=== PATIENT | male | born 1995 | race Caucasian/White ===

== ENCOUNTER → 2017-12-24 | Outpatient (CLI) | payer BC | END | disposition home or self-care (01) | LOC: ECHO 09:45 | DX: I11.9 Hypertensive heart disease without heart failure (principal); R53.83 Other fatigue | CPT/HCPCS: 93306 ==

== ENCOUNTER → 2018-03-11 | Outpatient (CLI) | payer BC ==
[2018-03-11] MEDS: ZOLPIDEM 5 MG TABLET. PO (22:21)
== END | disposition home or self-care (01) ==
LOC: SLPLAB 18:40
DX: G47.33 Obstructive sleep apnea (adult) (pediatric) (principal)
CPT/HCPCS: 95810

== ENCOUNTER → 2018-12-09 | Outpatient (CLI) | payer BC ==
--- NOTE | 2018-12-09 14:37 | KCIC ---
EXAM: Abdomen sonogram. HISTORY: Pain. TECHNIQUE: Sonographic imaging of the abdomen was performed. COMPARISON: None. FINDINGS: The exam is limited due to patient body habitus. There is hepatomegaly and hepatic steatosis. No focal hepatic lesion is seen. The common bile duct is obscured. The pancreas is unremarkable. The spleen is enlarged, measuring 15.6 cm. The kidneys are unremarkable. The aorta, pancreas and inferior vena cava are obscured. IMPRESSION: 1. Hepatomegaly and hepatic steatosis. 2. Splenomegaly. 3. Limited evaluation of the midline structures and common bile duct due to body habitus. Electronically signed by: Josi Randolph MD (12/09/2018 2:34 PM) [id number]
== END | disposition home or self-care (01) ==
LOC: KCIC US 13:09
PROVIDERS: ATTEND Family Medicine
DX: K76.0 Fatty (change of) liver, not elsewhere classified (principal); R16.2 Hepatomegaly with splenomegaly, not elsewhere classified
CPT/HCPCS: 76700

== ENCOUNTER 2019-12-10 12:04 | Emergency (ER) | payer OTHER ==
[~2019-12-10] VITALS: Ht 188 cm; Wt 168.0 kg
[2019-12-10 12:25] VITALS: BP 169/103
[2019-12-10] MEDS ORDERED: ORPH100T PO (12:42)
[2019-12-10] MEDS ORDERED: IBUP-1007 PO (12:42)
--- NOTE | 2019-12-10 12:42 | PHYS DOC ---
Adult General Chief Complaint Chief Complaint: ANKLE PROBLEM HPI HPI Patient is a 23 year old male who presents with proximal at [facility] and is on his feet a lot walking and pushing carts and stocking. He's been doing this after last 3 months. Patient states he awoke yesterday and began having left arch of his foot pain. Patient states he can walk and bear weight on it but it is painful. Patient states he took Aleve yesterday but with little use of pain. Patient rates his pain 7 out of 10. Review of Systems Review of Systems Musculoskeletal: Left arch of foot pain. Denies back pain or joint pain [] All other systems were reviewed and found to be within normal limits, except as documented in this note. Allergies Allergies Allergies Coded Allergies Type Severity Reaction Last Updated Verified Penicillins Allergy Intermediate Rash 03/11/18 Yes Physical Exam Physical Exam Constitutional: Well developed, well nourished, no acute distress, non-toxic appearance. [] HENT: Normocephalic, atraumatic, bilateral external ears normal, oropharynx moist, no oral exudates, nose normal. [] Eyes: PERRLA, EOMI, conjunctiva normal, no discharge. [] Neck: Normal range of motion, no tenderness, supple, no stridor. [] Cardiovascular:Heart rate regular rhythm, no murmur [] Lungs & Thorax: Bilateral breath sounds clear to auscultation [] Abdomen: Bowel sounds normal, soft, no tenderness, no masses, no pulsatile masses. [] Skin: Warm, dry, no erythema, no rash. [] Back: No tenderness, no CVA tenderness. [] Extremities: Left arch of foot tenderness, no cyanosis, no clubbing, ROM intact, no edema. [] Neurologic: Alert and oriented X 3, normal motor function, normal sensory function, no focal deficits noted. [] Psychologic: Affect normal, judgement normal, mood normal. [] Current Patient Data Vital Signs Vital Signs Date Time Temp Pulse Resp B/P (MAP) Pulse Ox O2 Delivery O2 Flow Rate FiO2 12/10/19 12:25 98.1 107 20 169/103 (125) 96 Room Air 98.1 EKG EKG [] Radiology/Procedures Radiology/Procedures [] Impressions: [facility] [address] [place] [address] IMAGING REPORT Signed PATIENT: REINA RAMÍREZ ACCOUNT: [id number] : 1995 LOCATION: ER AGE: 23 SEX: M EXAM STATUS: REG ER ORD. PHYSICIAN: BABS NASCIMENTO APRN REASON: pain to arch of foot,pt denies trauma or injury PROCEDURE: FOOT LEFT 3V Left foot 3 views. HISTORY: Pain to arch of foot 3 views were taken of the left foot. There is not evidence of an acute fracture or osseous abnormality. IMPRESSION: 1. Negative left foot. Electronically signed by: Sin Shearer MD (12/10/2019 1:07 PM) [id number] DICTATED and SIGNED BY: SIN SHEARER MD DATE: 12/10/19 1308 Course & Med Decision Making Course & Med Decision Making Pertinent Labs and Imaging studies reviewed. (See chart for details) Alert and oriented. Patient can walk and bear weight on the left extremity lower extremity but there is sharp and aching pain. He is limping. Skin pink warm and dry. No swelling. There is tenderness to the arch of his foot. No bruising or deformity or swelling or redness. Patient does have dry skin to the bottom of the foot. Pedal pulses strong and present. Cap refill less than 3 seconds. Can wiggle toes. Denies any numbness or tingling. Denies any ankle pain. Denies any injury. Patient's shoes look to be very worn. This is likely a overuse type injury to the arch of his foot or a strain. Patient be given a prescription for ibuprofen and muscle relaxer. He is told to buy better shoes with a good arch support. Or have inserts for arch support and issues. [] Dragon Disclaimer Dragon Disclaimer This electronic medical record was generated, in whole or in part, using a voice recognition dictation system. Departure Departure Impression: Primary Impression: Strain of foot, left Disposition: 01 HOME, SELF-CARE Condition: STABLE Referrals: ALIA NANCE MD (PCP) Patient Instructions: Foot Sprain Additional Instructions: Follow-up with a primary care provider. Try to rest the foot as much as possible. Take medications as prescribed. These medications will make you sleepy. Buy good arch supporting shoes for work. Scripts Orphenadrine Citrate (ORPHENADRINE CITRATE) 100 Mg Tablet.er 1 TAB PO BID, #14 TAB Prov: BABS NASCIMENTO APRN 12/10/19 Ibuprofen (IBUPROFEN) 600 Mg Tablet 600 MG PO PRN Q6HRS PRN for INFLAMMATION, #20 TAB Prov: BABS NASCIMENTO APRN 12/10/19 Problem Qualifiers Primary Impression: Strain of foot, left Encounter type: initial encounter Qualified Codes: S96.912A - Strain of unspecified muscle and tendon at ankle and foot level, left foot, initial encounter BABS NASCIMENTO APRN Dec 10, 2019 12:42
--- NOTE | 2019-12-10 13:10 | RAD ---
Left foot 3 views. HISTORY: Pain to arch of foot 3 views were taken of the left foot. There is not evidence of an acute fracture or osseous abnormality. IMPRESSION: 1. Negative left foot. Electronically signed by: Sin Shearer MD (12/10/2019 1:07 PM) [id number]
== END 2019-12-10 13:20 | disposition home or self-care (01) ==
LOC: ER 12:04
DX: S96.812A Strain of other specified muscles and tendons at ankle and foot level, left foot, initial encounter (principal); Z88.0 Allergy status to penicillin; X50.0XXA Overexertion from strenuous movement or load, initial encounter; Y93.89 Activity, other specified; Y92.89 Other specified places as the place of occurrence of the external cause; Y99.8 Other external cause status
CPT/HCPCS: 73630; 99283